=== PATIENT | male | born 1970 | race Caucasian/White ===

== ENCOUNTER 2017-11-29 08:02 | Outpatient (CLI) | payer OTHER ==
--- NOTE | 2017-11-29 12:37 | Ultrasound Report ---
AORTA SCREENIN11/29/2017 CLINICAL INDICATION: Family history of aneurysm. TECHNIQUE: Real-time scanning was performed with insurance follow up representative static images obtained. FINDINGS: The abdominal aorta is normal in caliber, measuring 2.7 cm proximally, 2.7 cm in the mid portion, and 1.9 cm distally. The iliacs are normal in caliber. No free fluid is present. IMPRESSION: NO EVIDENCE OF AN ABDOMINAL AORTIC ANEURYSM. TD: 11/29/2017 12:36
--- NOTE | 2017-11-30 15:24 | Ultrasound Report ---
CAROTID DUPLEX: 11/29/2017 CLINICAL INDICATION: Pulsatile tinnitus. TECHNIQUE: Real-time sonographic vascular imaging was performed by the editorial director through the carotid arteries utilizing both color-flow and Doppler spectral analysis. Multiple dermatology sales representative static images were saved for review. RIGHT Vessel PSV cm/sec EDV cm/sec ICA/CCA RSV Ratio Degree of Stenosis Plaque Estimate % RCCA Prox 95 -- -- RCCA Dist 91 20 -- RECA 96 -- -- RT BULB 105 20 1.15 ALESSANDRO Prox 71 24 0.78 ALESSANDRO Mid 62 24 0.68 ALESSANDRO Dist 77 15 0.85 RVA 46 -- -- RVA flow direction: Antegrade LEFT Vessel PSV cm/sec EDV cm/sec ICA/CCA RSV Ratio Degree of Stenosis Plaque Estimate % LCCA Prox 119 -- -- LCCA Dist 86 22 -- LECA 116 -- -- LFT BULB 55 10 1.15 LICA Prox 73 30 0.78 LICA Mid 73 29 0.68 LICA Dist 78 32 0.85 LVA 51 -- -- LVA flow direction: Antegrade Velocity criteria are extrapolated from diameter data as defined by the Society of Radiologists in Ultrasound Consensus Conference Radiology 2003; 229; 340-346. Degree of Stenosis % ICA PSV cm/sec ICA EDV cm/sec ICA/CCA PSV Ratio Plaque Estimate % Normal < 125 < 40 < 2.0 None <50 < 125 < 40 < 2.0 < 50 50-69 125-130 40-100 2.0-4.0 >/=50 >/=70 but less than near occlusion > 230 > 100 > 4.0 >/=50 Near occlusion High, low or undetectable Variable Variable Visible Total occlusion Undetectable Not applicable Not applicable No detectable lumen FINDINGS RIGHT: There is no plaquing in the right carotid bifurcation. No hemodynamically significant stenosis is seen. LEFT: There is no plaquing in the left carotid bifurcation. No hemodynamically significant stenosis is seen. The vertebral arteries demonstrate antegrade flow bilaterally. IMPRESSION: NORMAL CAROTID DUPLEX. TD: 11/29/2017 12:34 MTDD
== END 2017-11-29 08:03 | disposition home or self-care (01) ==
LOC: DI 08:02
PROVIDERS: ATTEND Registered Nurse
DX: Z13.6 Encounter for screening for cardiovascular disorders (principal); H93.A9 Pulsatile tinnitus, unspecified ear
CPT/HCPCS: 76706; 93880

== ENCOUNTER 2019-01-10 16:27 | Outpatient (CLI) | payer OTHER ==
--- NOTE | 2019-01-11 14:43 | MRI Report ---
Reason: PAIN IN LEFT ELBOW Procedure Date: 01/10/2019 Accession Number: [id number] / [id number] Procedure: MRI - Elbow LT W/O CPT Code: FULL RESULT: EXAM: LEFT ELBOW MRI WITHOUT CONTRAST EXAM DATE: 01/10/2019 05:12 PM. CLINICAL HISTORY: Left elbow pain. COMPARISON: None. TECHNIQUE: Multiplanar, multisequence T1-weighted and fluid-sensitive sequences of the elbow without contrast. Other: None. FINDINGS: Bones and articular cartilage: Marginal osteophytes at the distal end of the humerus, proximal end of the ulna, and proximal end of the radius. Tiny subcortical cysts and minimal subchondral marrow edema at the capitellum. 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 Grade III-IV chondromalacia at the capitellum. Grade II-III chondromalacia at the ulnohumeral joint. No acute fracture or bone lesions. Ligaments: The ulnar collateral, lateral ulnar collateral, radial collateral, and annular ligaments are intact. Tendons: The common flexor and extensor tendons are unremarkable. The distal biceps, brachialis, and triceps tendons are unremarkable. Musculature: There is an approximately 5.1 x 1.6 x 1.5 cm simple-appearing lipoma within the anteromedial aspect of the brachioradialis muscle. No muscle edema or atrophy. Other: The cubital tunnel and ulnar nerve are unremarkable. Small joint effusion. The subcutaneous tissues are unremarkable. IMPRESSION: 1. Elbow joint osteoarthritis. 2. No tendon or ligament tear. 3. A 5.1 x 1.6 x 1.5 cm lipoma within the anteromedial aspect of the brachioradialis muscle. RADIA
== END 2019-01-10 16:28 | disposition home or self-care (01) ==
LOC: DI 16:27
PROVIDERS: ATTEND Registered Nurse
DX: M19.022 Primary osteoarthritis, left elbow (principal); D17.9 Benign lipomatous neoplasm, unspecified

== ENCOUNTER 2021-08-02 20:53 | Inpatient (IN) | payer OTHER ==
[2021-08-02 21:12] LABS: BASOPHILS # (AUTO) 0.1 10^3/uL (0.0-0.1); BASOPHILS % (AUTO) 0.7 %; EOSINOPHILS # (AUTO) 0.3 10^3/uL (0.0-0.7); HCT - HEMATOCRIT 46.8 % (42.0-52.0); HGB - HEMOGLOBIN 16.6 g/dL (14.0-18.0); LYMPHOCYTES # (AUTO) 2.7 10^3/uL (1.5-3.5); MEAN CORPUSCULAR HEMOGLOBIN 30.2 pg (27.0-31.0); MEAN CORPUSCULAR HGB CONC 35.5 g/dL (32.0-36.0); MEAN CORPUSCULAR VOLUME 85.2 fL (80.0-94.0); MEAN PLATELET VOLUME 10.7 fL (7.4-11.4); MONOCYTES # (AUTO) 0.7 10^3/uL (0.0-1.0); MONOCYTES % (AUTO) 8.4 %; NEUTROPHILS # (AUTO) 4.7 10^3/uL (1.5-6.6); NEUTROPHILS % (AUTO) 55.7 %; PLT - PLATELET COUNT 245 10^3/uL (130-450); RED BLOOD COUNT 5.49 10^6/uL (4.70-6.10); RED CELL DISTRIBUTION WIDTH 12.9 % (12.0-15.0); WHITE BLOOD COUNT 8.4 x10^3/uL (4.8-10.8)
--- NOTE | 2021-08-02 21:21 | XRAY Report ---
PROCEDURE: Chest 1 View X-Ray INDICATIONS: Chest Pain TECHNIQUE: One view of the chest was acquired. COMPARISON: None FINDINGS: Surgical changes and devices: None. Lungs and pleura: No pleural effusions or pneumothorax. Lungs are clear. Mediastinum: Mediastinal contours appear normal. Heart size is normal. Bones and chest wall: No suspicious bony lesions. Overlying soft tissues appear unremarkable. IMPRESSION: No acute process. Reviewed by: Mundo Bear MD on 08/02/2021 9:19 PM [facility] Approved by: Mundo Bear MD on 08/02/2021 9:19 PM [facility] Station ID: [id number]
[2021-08-02 21:25] LABS: INR 1.1 (0.8-1.2); PT - PROTHROMBIN TIME 12.2 secs (9.9-12.6)
[2021-08-02 21:32] LABS: ALBUMIN 4.8 g/dL (3.2-5.5); ALBUMIN/GLOBULIN RATIO 1.5 (1.0-2.2); BILIRUBIN,TOTAL 0.9 mg/dL (0.2-1.0); CALCIUM 9.7 mg/dL (8.5-10.3); CREATININE 1.2 mg/dL (0.6-1.2); POTASSIUM 3.1 mmol/L (3.5-5.0); TOTAL PROTEIN 8.1 g/dL (6.7-8.2)
[2021-08-02] MEDS: diltiaZEM INJ 5 MG/ML VIAL IVP PRN ×3 (21:34→23:11)
[2021-08-02] MEDS ORDERED: MAGNESIUM SULFATE 2 GRAM 2 GM/50 ML BAG IV ONE (21:58)
[2021-08-02] MEDS: POTASSIUM CHLOR 10 MEQ/100 ML 10 MEQ/100 ML BAG IV SCH ×2 (22:13→23:00)
[2021-08-02] MEDS ORDERED: diltiaZEM INJ 125 MG in DEXTROSE 5% 100 ML IV STA (23:27)
[2021-08-02] MEDS ORDERED: diltiaZEM INJ 5 MG/ML VIAL ONE (23:42)
[2021-08-03] MEDS: POTASSIUM CHLOR 10 MEQ/100 ML 10 MEQ/100 ML BAG IV SCH ×2 (00:01→01:05)
[2021-08-03 01:23] LABS: B. PARAPERTUSSIS- RESP PCR PAN NOT DETECTED; B. PERTUSSIS- RESP PCR PANEL NOT DETECTED; C. PNEUMONIAE- RESP PCR PANEL NOT DETECTED; CORONAVIRUS 229E-RESP PCR NOT DETECTED; CORONAVIRUS HKU1-RESP PCR NOT DETECTED; CORONAVIRUS NL63-RESP PCR NOT DETECTED; CORONAVIRUS OC43-RESP PCR NOT DETECTED; HUMAN METAPNEUMOVIRUS NOT DETECTED; INFLUENZA A- RESP PCR PANEL NOT DETECTED; INFLUENZA B - RESP PCR PANEL NOT DETECTED; M. PNEUMONIAE- RESP PCR PANEL NOT DETECTED; PARAINFLUENZA VIRUS 1 NOT DETECTED; PARAINFLUENZA VIRUS 2 NOT DETECTED; PARAINFLUENZA VIRUS 3 NOT DETECTED; PARAINFLUENZA VIRUS 4 NOT DETECTED; RHINOVIRUS/ENTEROVIRUS NOT DETECTED; RSV- RESP PCR PANEL NOT DETECTED; SARS-CoV-2 -RESP PCR PANEL NOT DETECTED
[2021-08-03] MEDS ORDERED: SODIUM CHLORIDE FLUSH 0.9% 10 ML SYRINGE IVP PRN (01:42)
[2021-08-03] MEDS ORDERED: ACETAMINOPHEN 325 MG TABLET PO PRN (01:42)
[2021-08-03] MEDS ORDERED: ONDANSETRON 4 MG/2 ML VIAL IVP PRN (01:42)
--- NOTE | 2021-08-03 01:51 | HISTORY & PHYSICAL EXAMINATION ---
Chief Complaint - Chief Complaint Chief Complaint: Palpitations History of Present Illness - Admitted From Admitted From:: ED - History Obtained From History obtained from: ED provider and the patient - History of Present Illness HPI Comment/Other: This is a 60-year-old white male with a history of hypertension for which he takes amlodipine, losartan and HCTZ. He checked his vital signs several days ago and noticed that his heart rate was high for about 2 hours. Today he felt rapid palpitations and checked his heart rate which she found to be high and the apple watch told him he was in A. fib. He therefore presented to the ED. Heart rate was 140 in A. fib at presentation. He got 2 Cardizem IV pushes with minimal results and has been started on a Cardizem drip for rate control. Blood pressure still remains high at 110-130. He is being admitted to the ICU for new onset of A. fib with RVR. His younger brother of a burst aortic aneurysm at age 42. 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 He has needed 3 BP meds for BP control. When he was on Coreg, plus HCTZ and Losartan, he heard pulsations in his ears, which stopped when Coreg was discontinued. We discussed his code wishes and he wants to be a Full Code. History - Past Medical History Cardiovascular: reports: Hypertension, High cholesterol MRSA Hx?: No - Family & Social History Family History: Brother: (burst aortic aneurysm) Living arrangement: At home Living Situation: With spouse/s.o. Social History Notes: He is a non-smoker, he smoked cigars only during college. He drinks 1 beer about a month. No illicit drug use history. He lives with his . He has no children. - Substance History Use: Uses substance without health or social issues: NONE Meds/Allgy - Home Medications Home Medications: Ambulatory Orders Medication Instructions Recorded Confirmed Losartan [Cozaar] 100 mg PO DAILY 08/02/21 08/02/21 amLODIPine [Norvasc] 5 mg PO DAILY 08/02/21 08/02/21 hydroCHLOROthiazide 25 mg PO DAILY 08/02/21 08/02/21 [Hydrochlorothiazide] - Allergies Allergies/Adverse Reactions: Allergies Allergy/AdvReac Type Severity Reaction Status Date / Time No Known Drug Allergies Allergy Verified 08/03/21 03:21 Review of Systems - Cardiovascular Cariovascular: reports: Palpitations - All Other Systems All Other Systems: reports: Reviewed and negative Exam - Vital Signs Reviewed Vital Signs: Yes Vital Signs: Vital Signs x48h Temp Pulse Resp BP Pulse Ox 08/03/21 01:30 122 H 17 122/95 H 96 08/03/21 01:00 102 H 12 128/85 H 97 08/03/21 00:30 108 H 12 137/99 H 96 08/03/21 00:00 117 H 16 155/91 H 95 08/02/21 23:30 120 H 11 L 169/99 H 97 08/02/21 23:00 143 H 13 134/99 H 96 08/02/21 22:57 133 H 15 132/99 H 96 08/02/21 22:43 119 H 12 128/83 H 95 08/02/21 22:30 138 H 15 126/99 H 95 08/02/21 22:01 144 H 14 140/100 H 97 08/02/21 21:54 124 H 11 L 126/88 H 97 08/02/21 21:46 110 H 12 152/135 H 97 08/02/21 21:38 121 H 14 139/85 H 97 08/02/21 21:34 144 H 164 H 179/149 H 96 08/02/21 21:00 36.9 C 145 H 18 168/111 H 99 - Physical Exam General Appearance: positive: No acute distress, Alert Eyes Bilateral: positive: Normal inspection, EOMI ENT: positive: ENT inspection nml, No signs of dehydration Neck: positive: Nml inspection, Thyroid nml, No JVD Respiratory: positive: Breath sounds nml Cardiovascular: positive: Regular rate & rhythm, No murmur Abdomen: positive: Non-tender, Nml bowel sounds, No distention Skin: positive: Warm, Dry Extremities: positive: Non-tender, No pedal edema Neurologic/Psychiatric: positive: Oriented x3, Sensation nml Conclusion/Plan - Problem List (1) Atrial fibrillation with RVR Conclusion/Plan: This is new onset A. fib for this gentleman. His TSH is normal ruling out hyperthyroidism as the cause. First troponin was 4.0, will cycle one more to rule out ACS as the cause of A. fib. His CXR is WNL. We will continue with the diltiazem drip to achieve rate control, then transiti on to oral diltiazem or beta-soco. Will not give his home amlodipine dose while we are using diltiazem. Will obtain an Echo to evaluate for structural heart disease. At this time his CHADS score is zero, thus will start one baby aspirin daily for his stroke prophylaxis and A. fib. (2) HTN (hypertension) Conclusion/Plan: Will hold the HCTZ and amlodipine while we are hydrating him plus using diltiazem for rate control. Continue with Losartan, at a lower dose, while on Diltiazem, and holding parameters will be given. (3) Hypokalemia Conclusion/Plan: This is likely related to HCTZ use. Will give potassium replacement. Follow BMP daily - Lab Results Fish Bones: 08/02/21 21:02 08/02/21 21:02 - Diagnostic Imaging Results Diagnostic Imaging Results: positive: Final report reviewed - Other Other Results/Comments: Attestation: The patient is expected to be discharged or transferred to another facility within 96 hours: Yes
[2021-08-03] MEDS ORDERED: POTASSIUM CHLORIDE 20 MEQ TABLET PO STA (01:52)
[2021-08-03] MEDS ORDERED: SODIUM CHLORIDE 0.9% 1,000 ML IV SCH (02:00)
[2021-08-03] MEDS ORDERED: NS W/20 MEQ KCL 1,000 ML IV SCH (02:00)
[2021-08-03] MEDS ORDERED: diltiaZEM INJ 125 MG in DEXTROSE 5% 100 ML IV SCH (02:00)
--- NOTE | 2021-08-03 05:08 | ED Physician Documentation ---
History of Present Illness - Stated complaint Stated Complaint: HIGH HR - Chief complaint Chief Complaint: Cardiac - Additonal information Additional information: Patient is a 50-year-old male presenting to the emergency department with rapid heartbeat. Past medical significant for hypertension. Patient reports earlier today he was checking his blood pressure and noted that he had an irregular pulse. He subsequently checked the electrical activity of his heart via his apple watch and was told he is in A. fib. He is uncertain exactly when this started however he does report that last Monday he did have what he felt like was a similar episode that lasted approximately 2 hours. He denies any previous history of A. fib. Denies any fever, chills, chest pain, shortness of breath, abdominal pain, nausea, vomiting, diarrhea, constipation. Review of Systems Ten Systems: 10 systems reviewed and negative Constitutional: denies: Fever Eyes: denies: Loss of vision Ears: denies: Loss of hearing Nose: denies: Rhinorrhea / runny nose Throat: denies: Dental pain / toothache Cardiac: denies: Chest pain / pressure, Palpitations Respiratory: denies: Dyspnea GI: denies: Abdominal Pain PD PAST MEDICAL HISTORY - Past Medical History Past Medical History: Yes Cardiovascular: Hypertension, High cholesterol Respiratory: None Neuro: None Endocrine/Autoimmune: None GI: None : None Psych: None Musculoskeletal: None Derm: None - Past Surgical History Past Surgical History: Yes - Present Medications Home Medications: Ambulatory Orders Medication Instructions Recorded Confirmed Losartan [Cozaar] 100 mg PO DAILY 08/02/21 08/02/21 amLODIPine [Norvasc] 5 mg PO DAILY 08/02/21 08/02/21 hydroCHLOROthiazide 25 mg PO DAILY 08/02/21 08/02/21 [Hydrochlorothiazide] - Allergies Allergies/Adverse Reactions: Allergies Allergy/AdvReac Type Severity Reaction Status Date / Time No Known Drug Allergies Allergy Verified 08/03/21 03:21 - Social History Does the pt smoke?: No Smoking Status: Never smoker Does the pt drink ETOH?: Yes Does the pt have substance abuse?: No - Immunizations Immunizations are current?: Yes PD ED PE NORMAL - Vitals Vital signs reviewed: Yes - General General: Alert and oriented X 3, No acute distress - HEENT HEENT: Atraumatic - Neck Neck: Supple, no meningeal sign - Cardiac Cardiac: Other (Tachycardic, irregularly irregular pulse) - Respiratory Respiratory: No respiratory distress, Clear bilaterally - Abdomen Abdomen: Normal bowel sounds, Non tender - Male Male : Deferred - Derm Derm: Normal color - Extremities Extremities: No deformity - Neuro Neuro: Alert and oriented X 3, No motor deficit, No sensory deficit Results - Vitals Vitals: Vital Signs - 24 hr 08/02/21 08/02/21 08/02/21 21:00 21:34 21:38 Temperature 36.9 C Heart Rate 145 H 144 H 121 H Respiratory 18 164 H 14 Rate Blood Pressure 168/111 H 179/149 H 139/85 H O2 Saturation 99 96 97 08/02/21 08/02/21 08/02/21 21:46 21:54 22:01 Temperature Heart Rate 110 H 124 H 144 H Respiratory 12 11 L 14 Rate Blood Pressure 152/135 H 126/88 H 140/100 H O2 Saturation 97 97 97 08/02/21 08/02/21 08/02/21 22:30 22:43 22:57 Temperature Heart Rate 138 H 119 H 133 H Respiratory 15 12 15 Rate Blood Pressure 126/99 H 128/83 H 132/99 H O2 Saturation 95 95 96 08/02/21 08/02/21 08/03/21 23:00 23:30 00:00 Temperature Heart Rate 143 H 120 H 117 H Respiratory 13 11 L 16 Rate Blood Pressure 134/99 H 169/99 H 155/91 H O2 Saturation 96 97 95 08/03/21 08/03/21 08/03/21 00:30 01:00 01:30 Temperature Heart Rate 108 H 102 H 122 H Respiratory 12 12 17 Rate Blood Pressure 137/99 H 128/85 H 122/95 H O2 Saturation 96 97 96 Oxygen O2 Source Room air - EKG (time done) 2058 Rate: Tachy (137) Rhythm: Atrial fibrillation [place]: Normal Intervals: Normal RI QRS: Normal Ischemia: Normal ST segments Computer interpretation: Agree with computer - Labs Labs: Laboratory Tests 08/02/21 08/02/21 08/02/21 21:02 21:02 21:02 WBC 8.4 RBC 5.49 Hgb 16.6 Hct 46.8 MCV 85.2 MCH 30.2 MCHC 35.5 RDW 12.9 Plt Count 245 MPV 10.7 Neut # (Auto) 4.7 Lymph # (Auto) 2.7 Bond # (Auto) 0.7 Eos # (Auto) 0.3 Baso # (Auto) 0.1 Absolute Nucleated RBC 0.00 Nucleated RBC % 0.0 PT INR Sodium 140 Potassium 3.1 L Chloride 100 L Carbon Dioxide 29 Anion Gap 11.0 BUN 20 Creatinine 1.2 Estimated GFR (MDRD) 64 L Glucose 96 Calcium 9.7 Total Bilirubin 0.9 AST 25 ALT 33 Alkaline Phosphatase 57 Troponin I High Sens 4.0 B-Natriuretic Peptide Total Protein 8.1 Albumin 4.8 Globulin 3.3 Albumin/Globulin Ratio 1.5 Lipase 47 TSH Nasal Adenovirus (PCR) Nasal B. parapertussis DNA (PCR) Nasal Coronavir 229E PCR Nasal Coronavir HKU1 PCR Nasal Coronavir NL63 PCR Nasal Coronavir OC43 PCR Nasal Enterovir/Rhinovir PCR Nasal Influenza B PCR Nasal Influenza A PCR Nasal Parainfluen 1 PCR Nasal Parainfluen 2 PCR Nasal Parainfluen 3 PCR Nasal Parainfluen 4 PCR Nasal RSV (PCR) Nasal B.pertussis DNA PCR Nasal C.pneumoniae (PCR) Loyd Human Metapneumo PCR Nasal M.pneumoniae (PCR) Nasal SARS-CoV-2 (PCR) 08/02/21 08/02/21 08/02/21 21:02 21:02 21:15 WBC RBC Hgb Hct MCV MCH MCHC RDW Plt Count MPV Neut # (Auto) Lymph # (Auto) Bond # (Auto) Eos # (Auto) Baso # (Auto) Absolute Nucleated RBC Nucleated RBC % PT 12.2 INR 1.1 Sodium Potassium Chloride Carbon Dioxide Anion Gap BUN Creatinine Estimated GFR (MDRD) Glucose Calcium Total Bilirubin AST ALT Alkaline Phosphatase Troponin I High Sens B-Natriuretic Peptide 32 Total Protein Albumin Globulin Albumin/Globulin Ratio Lipase TSH 3.95 Nasal Adenovirus (PCR) Nasal B. parapertussis DNA (PCR) Nasal Coronavir 229E PCR Nasal Coronavir HKU1 PCR Nasal Coronavir NL63 PCR Nasal Coronavir OC43 PCR Nasal Enterovir/Rhinovir PCR Nasal Influenza B PCR Nasal Influenza A PCR Nasal Parainfluen 1 PCR Nasal Parainfluen 2 PCR Nasal Parainfluen 3 PCR Nasal Parainfluen 4 PCR Nasal RSV (PCR) Nasal B.pertussis DNA PCR Nasal C.pneumoniae (PCR) Loyd Human Metapneumo PCR Nasal M.pneumoniae (PCR) Nasal SARS-CoV-2 (PCR) 08/02/21 23:44 WBC RBC Hgb Hct MCV MCH MCHC RDW Plt Count MPV Neut # (Auto) Lymph # (Auto) Bond # (Auto) Eos # (Auto) Baso # (Auto) Absolute Nucleated RBC Nucleated RBC % PT INR Sodium Potassium Chloride Carbon Dioxide Anion Gap BUN Creatinine Estimated GFR (MDRD) Glucose Calcium Total Bilirubin AST ALT Alkaline Phosphatase Troponin I High Sens B-Natriuretic Peptide Total Protein Albumin Globulin Albumin/Globulin Ratio Lipase TSH Nasal Adenovirus (PCR) NOT DETECTED Nasal B. parapertussis DNA (PCR) NOT DETECTED Nasal Coronavir 229E PCR NOT DETECTED Nasal Coronavir HKU1 PCR NOT DETECTED Nasal Coronavir NL63 PCR NOT DETECTED Nasal Coronavir OC43 PCR NOT DETECTED Nasal Enterovir/Rhinovir PCR NOT DETECTED Nasal Influenza B PCR NOT DETECTED Nasal Influenza A PCR NOT DETECTED Nasal Parainfluen 1 PCR NOT DETECTED Nasal Parainfluen 2 PCR NOT DETECTED Nasal Parainfluen 3 PCR NOT DETECTED Nasal Parainfluen 4 PCR NOT DETECTED Nasal RSV (PCR) NOT DETECTED Nasal B.pertussis DNA PCR NOT DETECTED Nasal C.pneumoniae (PCR) NOT DETECTED Loyd Human Metapneumo PCR NOT DETECTED Nasal M.pneumoniae (PCR) NOT DETECTED Nasal SARS-CoV-2 (PCR) NOT DETECTED PD MEDICAL DECISION MAKING - ED course Complexity details: re-evaluated patient ED course: Patient is 50-year-old male presenting with new onset A. fib with RVR. Past medical significant for hypertension and dyslipidemia. Arrived in atrial fibrillation with rapid ventricular response with initial heart rate approximately 1 37-1 50. Otherwise hemodynamically stable and mentating well. Comprehensive labs obtained demonstrated a mild hypokalemia and I did elect to replace potassium as well as give magnesium empirically. Patient was given multiple push doses of Cardizem in the emergency department without successful rate control or work cardioversion. I did initiate a Cardizem drip in the emergency department which did successfully slow the patient's rate however did not elicit spontaneous conversion back to sinus rhythm. His case was discussed with the hospitalist service. At this time he will be hospitalized for further evaluation and treatment. - Critical Care Time(min): 31 Time Includes: Direct patient care, Reassess patient, Medical consult Data interpretation: Labs, CXR Departure - Departure Disposition: [facility] DC/Xfer Clinical Impression: Atrial fibrillation with RVR Condition: Fair Discharge Date/Time: 08/03/21 02:17
[2021-08-03 05:14] LABS: BASOPHILS % (AUTO) 0.5 %; EOSINOPHILS # (AUTO) 0.2 10^3/uL (0.0-0.7); EOSINOPHILS % (AUTO) 2.9 %; HCT - HEMATOCRIT 44.9 % (42.0-52.0); HGB - HEMOGLOBIN 15.7 g/dL (14.0-18.0); LYMPHOCYTES # (AUTO) 1.9 10^3/uL (1.5-3.5); LYMPHOCYTES % (AUTO) 30.2 %; MEAN CORPUSCULAR HEMOGLOBIN 29.6 pg (27.0-31.0); MEAN CORPUSCULAR VOLUME 84.7 fL (80.0-94.0); MONOCYTES # (AUTO) 0.5 10^3/uL (0.0-1.0); MONOCYTES % (AUTO) 7.6 %; NEUTROPHILS # (AUTO) 3.6 10^3/uL (1.5-6.6); NEUTROPHILS % (AUTO) 58.5 %; PLT - PLATELET COUNT 228 10^3/uL (130-450); RED CELL DISTRIBUTION WIDTH 12.9 % (12.0-15.0); WHITE BLOOD COUNT 6.2 x10^3/uL (4.8-10.8)
[2021-08-03 05:26] LABS: CALCIUM 8.6 mg/dL (8.5-10.3); MAGNESIUM 2.4 mg/dL (1.7-2.8); PHOSPHORUS 3.7 mg/dL (2.5-4.6); POTASSIUM 3.2 mmol/L (3.5-5.0)
[2021-08-03] MEDS: POTASSIUM CHLORIDE 20 MEQ TABLET PO SCH ×2 (06:27→08:58)
[2021-08-03] MEDS ORDERED: PANTOPRAZOLE 40 MG TABLET PO SCH (07:00)
[2021-08-03] MEDS ORDERED: LOSARTAN 50 MG TABLET PO SCH (09:00)
[2021-08-03] MEDS ORDERED: diltiaZEM CD 120 MG CAPSULE PO SCH (09:00)
[2021-08-03] MEDS ORDERED: ASPIRIN EC 81 MG TABLET PO SCH (09:00)
[2021-08-03] MEDS ORDERED: ENOXAPARIN 40 MG/0.4 ML SYRINGE SUBQ SCH (09:00)
[2021-08-03] MEDS ORDERED: SODIUM CHLORIDE FLUSH 0.9% 10 ML SYRINGE IVP SCH (09:00)
--- NOTE | 2021-08-03 09:26 | PHARMACY PROGRESS NOTE ---
- Best Possible Medication History Admit Date and Time: 08/03/21 0142 Processed by: Nursing Medication History completed: Yes Patient Interview: Completed (COMPLETED BY NURSING) As the person ultimately responsible for medication therapy, providers are able to order a medication from an existing home medication list in [facility] via the "Reconcile Routine" prior to Confirmation of that medication by technical support professional. Such practice is discouraged except when the physician, in their clinical judgment, deems that a medical need exists for a medication without regard to previous use.
[2021-08-03 11:10] VITALS: BP 134/80
--- NOTE | 2021-08-03 11:13 | Discharge Plan ---
Discharge Plan Problem Reviewed?: Yes Disposition: Home, Self Care Condition: Stable Prescriptions: diltiaZEM CD [Cardizem Cd] 120 mg PO DAILY #30 cap Aspirin EC [Ecotrin] 81 mg PO DAILY #30 tablet Potassium Chloride 10 meq PO DAILY #30 tab Diet: Regular Activity Restrictions: Activity as Tolerated Instruction Topics: Atrial Fibrillation Dc Health Concerns: You were admitted to the hospital because of an elevated heart rate due to atrial fibrillation. We treated you with an IV medication called diltiazem with improvement in your heart rate. An echocardiogram showed that your heart function was normal and your valves are functioning well. Plan of Treatment: Please begin to take the diltiazem 120 mg daily. This is to help control your heart rate. Please also begin to take aspirin 81 mg daily as this can decrease your risk of stroke associated with atrial fibrillation. You may also continue to take losartan for your high blood pressure. Please stop taking amlodipine as the diltiazem is similar to this but also helps in controlling your heart rate. Please also stop taking hydrochlorothiazide for the time being as I am c oncerned your blood pressure may become too low. Please check your blood pressure on a regular basis at home and follow-up with your primary care physician. If your blood pressure is persistently greater than 140 then you may need to resume the hydrochlorothiazide in the future. Please also take potassium supplementation on a daily basis as your potassium was noted to be a little low likely due to the hydrochlorothiazide. I have sent a prescription for potassium to take daily. Care Goals: The goal is to control your heart rate. Assessment: The patient expressed understanding of the treatment plan. Additional Instructions or Follow Up instructions: Please follow-up with your primary care physician in 1 to 2 weeks. You can discuss with them regarding a referral to cardiology. No Smoking: If you smoke, Please STOP! Call for help. Follow-up with: Liat Tillman ARNP [Primary Care Provider] -
--- NOTE | 2021-08-03 11:39 | DISCHARGE SUMMARY ---
"Discharge Summary Admit Date: 08/03/21 Discharge Date: 08/03/21 Discharging Provider: Fredis Song Primary Care Provider: Liat Tillman Code Status: Attempt Resuscitation Condition at Discharge: Stable Discharge Disposition: 01 Home, Self Care - DIAGNOSES Admission Diagnoses: Atrial fibrillation with RVR Hypertension Hypokalemia Discharge Diagnoses with Status of Each Condition: Paroxysmal atrial fibrillation with RVR - resolved. Hypertension - stable. Hypokalemia - stable. - HPI History of Present Illness: H&P per Dr. Arthur: This is a 50-year-old white male with a history of hypertension for which he takes amlodipine, losartan and HCTZ. He checked his vital signs several days ago and noticed that his heart rate was high for about 2 hours. Today he felt rapid palpitations and checked his heart rate which she found to be high and the apple watch told him he was in A. fib. He therefore presented to the ED. Heart rate was 140 in A. fib at presentation. He got 2 Cardizem IV pushes with minimal results and has been started on a Cardizem drip for rate control. Blood pressure still remains high at 110-130. He is being admitted to the ICU for new onset of A. fib with RVR. His younger brother of a burst aortic aneurysm at age 42. 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 He has needed 3 BP meds for BP control. When he was on Coreg, plus HCTZ and Losartan, he heard pulsations in his ears, which stopped when Coreg was discontinued. We discussed his code wishes and he wants to be a Full Code. - CONSULTS | PROCEDURES Procedures: Echocardiogram revealed an ejection fraction of 60%. Left atrium is mildly dilated. Normal valve structure and function. Normal right heart, normal pulmonary pressures, RVSP 34 mmHg. - HOSPITAL COURSE Hospital Course: He was admitted to the ICU for atrial fibrillation with rapid ventricular response. He was started on a diltiazem drip and he converted to sinus rhythm overnight. He was switched to p.o. Cardizem. An echocardiogram was obtained which showed a preserved ejection fraction without any significant valvular disease. He was started on aspirin as well for his atrial fibrillation given his [id number] score was 1. He was asked to continue losartan and begin to take diltiazem as well as aspirin at home. He was asked to discontinue the hydrochlorothiazide to prevent hypotension until he follows up with his primary care physician. He was also asked to discontinue amlodipine given we are adding diltiazem. He will be discussing with his primary care physician regarding referral to cardiology. - ALLERGIES Allergies/Adverse Reactions: Allergies Allergy/AdvReac Type Severity Reaction Status Date / Time No Known Drug Allergies Allergy Verified 08/03/21 03:21 - MEDICATIONS Home Medications: Ambulatory Orders Medication Instructions Recorded Confirmed Losartan [Cozaar] 100 mg PO DAILY 08/02/21 08/02/21 Aspirin EC [Ecotrin] 81 mg PO DAILY #30 tablet 08/03/21 Potassium Chloride 10 meq PO DAILY #30 tab 08/03/21 diltiaZEM CD [Cardizem Cd] 120 mg PO DAILY #30 cap 08/03/21 - PHYSICAL EXAM AT DISCHARGE General Appearance: positive: No acute distress, Alert Eyes Bilateral: positive: Normal inspection, Conjunctivae nml ENT: positive: ENT inspection nml Neck: positive: Nml inspection Respiratory: positive: No respiratory distress. negative: Wheezes, Rales Cardiovascular: positive: Regular rate & rhythm, No murmur. negative: Tachycardia Abdomen: positive: Non-tender, No distention. negative: Tenderness Skin: positive: Warm, Dry Extremities: positive: No pedal edema Neurologic/Psychiatric: positive: Motor nml. negative: Disoriented to person, Disoriented to place, Disoriented to time Physical Exam Other/Comments: Vital Signs - 24 hr 08/02/21 08/02/21 08/02/21 21:00 21:34 21:38 Temperature 36.9 C Heart Rate 145 H 144 H 121 H Heart Rate [ Monitoring electrodes] Respiratory 18 164 H 14 Rate Blood Pressure 168/111 H 179/149 H 139/85 H Blood Pressure [Right Brachial artery] O2 Saturation 99 96 97 08/02/21 08/02/21 08/02/21 21:46 21:54 22:01 Temperature Heart Rate 110 H 124 H 144 H Heart Rate [ Monitoring electrodes] Respiratory 12 11 L 14 Rate Blood Pressure 152/135 H 126/88 H 140/100 H Blood Pressure [Right Brachial artery] O2 Saturation 97 97 97 08/02/21 08/02/21 08/02/21 22:30 22:43 22:57 Temperature Heart Rate 138 H 119 H 133 H Heart Rate [ Monitoring electrodes] Respiratory 15 12 15 Rate Blood Pressure 126/99 H 128/83 H 132/99 H Blood Pressure [Right Brachial artery] O2 Saturation 95 95 96 08/02/21 08/02/21 08/03/21 23:00 23:30 00:00 Temperature Heart Rate 143 H 120 H 117 H Heart Rate [ Monitoring electrodes] Respiratory 13 11 L 16 Rate Blood Pressure 134/99 H 169/99 H 155/91 H Blood Pressure [Right Brachial artery] O2 Saturation 96 97 95 08/03/21 08/03/21 08/03/21 00:30 01:00 01:30 Temperature Heart Rate 108 H 102 H 122 H Heart Rate [ Monitoring electrodes] Respiratory 12 12 17 Rate Blood Pressure 137/99 H 128/85 H 122/95 H Blood Pressure [Right Brachial artery] O2 Saturation 96 97 96 08/03/21 08/03/21 08/03/21 02:00 02:30 02:31 Temperature 37.0 C Heart Rate 106 H 141 H 130 H Heart Rate [ 115 H Monitoring electrodes] Respiratory 13 19 19 Rate Blood Pressure 163/98 H 136/98 H Blood Pressure 136/98 H [Right Brachial artery] O2 Saturation 97 96 08/03/21 08/03/21 08/03/21 02:35 02:40 02:45 Temperature Heart Rate 94 120 H 78 Heart Rate [ Monitoring electrodes] Respiratory 19 22 17 Rate Blood Pressure Blood Pressure [Right Brachial artery] O2 Saturation 08/03/21 08/03/21 08/03/21 02:46 02:47 02:50 Temperature Heart Rate 86 114 H 91 Heart Rate [ Monitoring electrodes] Respiratory 22 23 14 Rate Blood Pressure 161/92 H Blood Pressure [Right Brachial artery] O2 Saturation 08/03/21 08/03/21 08/03/21 02:55 03:00 03:01 Temperature Heart Rate 88 99 86 Heart Rate [ 100 Monitoring electrodes] Respiratory 13 18 16 Rate Blood Pressure 112/84 H Blood Pressure 112/84 H [Right Brachial artery] O2 Saturation 96 08/03/21 08/03/21 08/03/21 03:05 03:10 03:15 Temperature Heart Rate 97 75 85 Heart Rate [ Monitoring electrodes] Respiratory 12 16 11 L Rate Blood Pressure Blood Pressure [Right Brachial artery] O2 Saturation 08/03/21 08/03/21 08/03/21 03:16 03:20 03:22 Temperature Heart Rate 119 H 98 88 Heart Rate [ Monitoring electrodes] Respiratory 25 H 15 13 Rate Blood Pressure 107/82 H Blood Pressure [Right Brachial artery] O2 Saturation 08/03/21 08/03/21 08/03/21 03:23 03:24 03:25 Temperature Heart Rate 95 80 97 Heart Rate [ Monitoring electrodes] Respiratory 17 16 14 Rate Blood Pressure 122/89 H 135/89 H Blood Pressure [Right Brachial artery] O2 Saturation 08/03/21 08/03/21 08/03/21 03:26 03:30 03:31 Temperature Heart Rate 92 92 89 Heart Rate [ Monitoring electrodes] Respiratory 15 11 L 15 Rate Blood Pressure 137/98 H Blood Pressure [Right Brachial artery] O2 Saturation 08/03/21 08/03/21 08/03/21 03:35 03:40 03:45 Temperature Heart Rate 77 84 76 Heart Rate [ Monitoring electrodes] Respiratory 14 13 12 Rate Blood Pressure Blood Pressure [Right Brachial artery] O2 Saturation 08/03/21 08/03/21 08/03/21 03:46 03:50 03:55 Temperature Heart Rate 78 81 91 Heart Rate [ Monitoring electrodes] Respiratory 13 25 H 15 Rate Blood Pressure 118/93 H Blood Pressure [Right Brachial artery] O2 Saturation 08/03/21 08/03/21 08/03/21 04:00 04:01 04:05 Temperature Heart Rate 91 72 104 H Heart Rate [ Monitoring electrodes] Respiratory 14 15 13 Rate Blood Pressure 123/78 Blood Pressure [Right Brachial artery] O2 Saturation 08/03/21 08/03/21 08/03/21 04:10 04:15 04:20 Temperature Heart Rate 78 91 90 Heart Rate [ Monitoring electrodes] Respiratory 15 14 16 Rate Blood Pressure Blood Pressure [Right Brachial artery] O2 Saturation 08/03/21 08/03/21 08/03/21 04:25 04:30 04:35 Temperature Heart Rate 99 75 89 Heart Rate [ Monitoring electrodes] Respiratory 19 14 20 Rate Blood Pressure Blood Pressure [Right Brachial artery] O2 Saturation 08/03/21 08/03/21 08/03/21 04:40 04:45 04:50 Temperature Heart Rate 78 105 H Heart Rate [ Monitoring electrodes] Respiratory 38 H 14 15 Rate Blood Pressure Blood Pressure [Right Brachial artery] O2 Saturation 08/03/21 08/03/21 08/03/21 04:55 05:00 05:05 Temperature Heart Rate 85 87 74 Heart Rate [ Monitoring electrodes] Respiratory 21 14 13 Rate Blood Pressure Blood Pressure [Right Brachial artery] O2 Saturation 08/03/21 08/03/21 08/03/21 05:10 05:11 05:12 Temperature Heart Rate 51 L 59 L 56 L Heart Rate [ Monitoring electrodes] Respiratory 12 18 17 Rate Blood Pressure 122/85 H Blood Pressure [Right Brachial artery] O2 Saturation 08/03/21 08/03/21 08/03/21 05:14 05:15 05:16 Temperature Heart Rate 53 L 53 L 52 L Heart Rate [ 54 L Monitoring electrodes] Respiratory 13 13 12 Rate Blood Pressure 116/87 H Blood Pressure 116/87 H [Right Brachial artery] O2 Saturation 95 08/03/21 08/03/21 08/03/21 07:00 07:45 07:50 Temperature Heart Rate 48 L 49 L Heart Rate [ 50 L Monitoring electrodes] Respiratory 12 13 12 Rate Blood Pressure Blood Pressure 105/80 [Right Brachial artery] O2 Saturation 96 08/03/21 08/03/21 08/03/21 07:55 07:59 08:00 Temperature Heart Rate 52 L 48 L 53 L Heart Rate [ Monitoring electrodes] Respiratory 14 13 13 Rate Blood Pressure 120/82 H Blood Pressure [Right Brachial artery] O2 Saturation 08/03/21 08/03/21 08/03/21 08:01 08:05 08:10 Temperature Heart Rate 52 L 52 L 56 L Heart Rate [ Monitoring electrodes] Respiratory 14 13 16 Rate Blood Pressure Blood Pressure [Right Brachial artery] O2 Saturation 08/03/21 08/03/21 08/03/21 08:15 08:20 08:25 Temperature Heart Rate 52 L 60 69 Heart Rate [ Monitoring electrodes] Respiratory 13 17 17 Rate Blood Pressure Blood Pressure [Right Brachial artery] O2 Saturation 08/03/21 08/03/21 08/03/21 08:30 08:35 08:40 Temperature Heart Rate 73 65 66 Heart Rate [ Monitoring electrodes] Respiratory 18 20 14 Rate Blood Pressure Blood Pressure [Right Brachial artery] O2 Saturation 08/03/21 08/03/21 08/03/21 08:45 08:50 08:55 Temperature Heart Rate 72 67 64 Heart Rate [ Monitoring electrodes] Respiratory 23 20 14 Rate Blood Pressure Blood Pressure [Right Brachial artery] O2 Saturation 08/03/21 08/03/21 08/03/21 08:56 08:59 09:00 Temperature Heart Rate 64 61 57 L Heart Rate [ 66 Monitoring electrodes] Respiratory 14 20 14 Rate Blood Pressure 138/90 H 128/90 H Blood Pressure 128/90 H [Right Brachial artery] O2 Saturation 96 08/03/21 08/03/21 08/03/21 09:01 09:05 09:11 Temperature Heart Rate 62 66 75 Heart Rate [ Monitoring electrodes] Respiratory 11 L 13 20 Rate Blood Pressure Blood Pressure [Right Brachial artery] O2 Saturation 08/03/21 08/03/21 08/03/21 09:15 09:20 09:25 Temperature Heart Rate 60 63 58 L Heart Rate [ Monitoring electrodes] Respiratory 19 15 14 Rate Blood Pressure Blood Pressure [Right Brachial artery] O2 Saturation 08/03/21 08/03/21 08/03/21 09:30 09:35 09:40 Temperature Heart Rate 59 L 60 59 L Heart Rate [ Monitoring electrodes] Respiratory 13 14 14 Rate Blood Pressure Blood Pressure [Right Brachial artery] O2 Saturation 08/03/21 08/03/21 08/03/21 09:45 09:50 09:55 Temperature Heart Rate 58 L 54 L 56 L Heart Rate [ Monitoring electrodes] Respiratory 12 14 11 L Rate Blood Pressure Blood Pressure [Right Brachial artery] O2 Saturation 08/03/21 08/03/21 08/03/21 10:00 10:01 10:05 Temperature Heart Rate 54 L 67 57 L Heart Rate [ Monitoring electrodes] Respiratory 13 19 14 Rate Blood Pressure 105/76 Blood Pressure [Right Brachial artery] O2 Saturation 08/03/21 08/03/21 08/03/21 10:10 10:15 10:20 Temperature Heart Rate 59 L 59 L 60 Heart Rate [ Monitoring electrodes] Respiratory 13 13 13 Rate Blood Pressure Blood Pressure [Right Brachial artery] O2 Saturation 08/03/21 08/03/21 08/03/21 10:25 10:30 10:35 Temperature Heart Rate 59 L 58 L 59 L Heart Rate [ Monitoring electrodes] Respiratory 13 13 13 Rate Blood Pressure Blood Pressure [Right Brachial artery] O2 Saturation 08/03/21 08/03/21 08/03/21 10:40 10:45 10:50 Temperature Heart Rate 61 59 L 60 Heart Rate [ Monitoring electrodes] Respiratory 15 13 28 H Rate Blood Pressure Blood Pressure [Right Brachial artery] O2 Saturation 08/03/21 08/03/2108/03/21 10:55 11:00 11:01 Temperature Heart Rate 71 69 67 Heart Rate [ 62 Monitoring electrodes] Respiratory 19 18 14 Rate Blood Pressure 134/80 H Blood Pressure 134/80 H [Right Brachial artery] O2 Saturation 98 08/03/21 08/03/21 08/03/21 11:05 11:10 11:15 Temperature Heart Rate 56 L 75 68 Heart Rate [ Monitoring electrodes] Respiratory 21 22 15 Rate Blood Pressure Blood Pressure [Right Brachial artery] O2 Saturation Oxygen O2 Source Room air - LABS Result Diagrams: 08/03/21 04:26 08/03/21 04:26 - FOLLOW UP Follow Up: He was asked to hold hydrochlorothiazide until he follows up with his primary care physician. It was encouraged that he follow-up with him in 1 to 2 weeks and to discuss a referral to cardiology. - TIME SPENT Time Spent in Discharge (Minutes): 32"
== END 2021-08-03 12:39 | disposition home or self-care (01) | DRG 310 ==
LOC: ED 20:53 → ICU 08-03 01:42
PROVIDERS: ADMIT Internal Medicine; ATTEND Internal Medicine
DX: I48.91 Unspecified atrial fibrillation (principal); I10 Essential (primary) hypertension; E78.00 Pure hypercholesterolemia, unspecified; E87.6 Hypokalemia; Z20.822 Contact with and (suspected) exposure to COVID-19; Z79.899 Other long term (current) drug therapy; Z82.49 Family history of ischemic heart disease and other diseases of the circulatory system; Z87.891 Personal history of nicotine dependence
CPT/HCPCS: 0202U; 36415; 71045; 80048; 80053; 83690; 83735; 83880; 84100; 84443; 84484; 85025; 85610; 87150; 93005; 93306; 96365; 96375; 96376; 99285; 99291; A9270; J1650

== ENCOUNTER 2021-08-16 03:10 | Outpatient (CLI) | payer OTHER | END 2021-08-16 03:11 | disposition EMS.NT | LOC: EMS 03:10 | DX: R07.89 Other chest pain (principal); R20.8 Other disturbances of skin sensation ==

== ENCOUNTER 2021-08-22 19:23 | Outpatient (CLI) | payer OTHER | END 2021-08-22 19:24 | disposition critical access hospital (66) | LOC: EMS 19:23 | DX: F41.9 Anxiety disorder, unspecified (principal); I10 Essential (primary) hypertension | CPT/HCPCS: A0425; A0429 ==

== ENCOUNTER 2021-08-22 19:56 | Emergency (ER) | payer OTHER ==
--- NOTE | 2021-08-22 20:38 | ED Physician Documentation ---
PD HPI CHEST PAIN - Stated complaint Stated Complaint: HIGH BLOOD PRESSURE, ANXIETY - Chief complaint Chief Complaint: Cardiac - History obtained from History obtained from: Patient, EMS - History of Present Illness Timing - onset: Today Timing - onset during: Rest Timing - details: Gradual onset Pain level max: 1 Pain level now: 1 Quality: Other (warm feeling) Location: Left chest Radiation: No: Jaw, Neck, Back, Abdominal, Left upper extremity, Right upper extremity Improved by: Nothing Worsened by: Other (nothing) Associated symptoms: No: Shortness of air, Diaphoresis, Nausea, Vomiting, Feeling faint / dizzy, General Weakness, Palpitations, Cough - Additional information Additional information: Patient is a 50-year-old male who is brought in by EMS today concerned about his blood pressure. He states that he has a history of hypertension. He was admitted here a few weeks ago for atrial fibrillation with rapid ventricular response and found to have hypokalemia as well. His medications were changed around at that time. He states he feels like he has had panic attacks since that occurred. He states that his blood pressure is normal in the morning and climbs throughout the day until he feels like he is having a panic attack at night. He states he also had slight left-sided chest pain earlier today. [place] like a warm sensation. Nothing made it better or worse. He states occasionally his hands feel cold. Review of Systems Constitutional: denies: Fever, Chills Throat: denies: Sore throat Cardiac: denies: Chest pain / pressure, Palpitations, Calf pain Respiratory: denies: Dyspnea, Cough GI: denies: Nausea, Vomiting, Diarrhea Skin: denies: Rash Musculoskeletal: denies: Neck pain, Back pain Neurologic: denies: Headache PD PAST MEDICAL HISTORY - Past Medical History Cardiovascular: Hypertension, High cholesterol Respiratory: None Neuro: None Endocrine/Autoimmune: None GI: None : None Psych: None Musculoskeletal: None Derm: None - Past Surgical History Past Surgical History: Yes - Present Medications Home Medications: Ambulatory Orders Medication Instructions Recorded Confirmed Losartan [Cozaar] 100 mg PO DAILY 08/02/21 08/02/21 Aspirin EC [Ecotrin] 81 mg PO DAILY #30 tablet 08/03/21 Potassium Chloride 10 meq PO DAILY #30 tab 08/03/21 diltiaZEM CD [Cardizem Cd] 120 mg PO DAILY #30 cap 08/03/21 Spironolactone [Aldactone] 25 mg PO 08/22/21 - Allergies Allergies/Adverse Reactions: Allergies Allergy/AdvReac Type Severity Reaction Status Date / Time nitrous oxide Allergy Unknown Verified 08/22/21 20:10 pollen extracts AdvReac Mild Rash Verified 08/22/21 20:20 pollen AdvReac Mild Rash Uncoded 08/22/21 20:20 - Social History Does the pt smoke?: No Smoking Status: Never smoker Does the pt drink ETOH?: Yes Does the pt have substance abuse?: No - Immunizations Immunizations are current?: Yes PD ED PE NORMAL - Vitals Vital signs reviewed: Yes - General General: Alert and oriented X 3, No acute distress - HEENT HEENT: PERRL, Moist mucous membranes - Neck Neck: Supple, no meningeal sign - Cardiac Cardiac: RRR - Respiratory Respiratory: No respiratory distress, Clear bilaterally - Abdomen Abdomen: Soft, Non tender, Non distended - Back Back: No spinal TTP - Derm Derm: Warm and dry - Extremities Extremities: No edema, No calf tenderness / cord - Neuro Neuro: Alert and oriented X 3 - Psych Psych: Normal mood, Normal affect Results - Vitals Vitals: Vital Signs - 24 hr 08/22/21 08/22/21 08/22/21 20:04 20:15 21:33 Temperature 36.6 C 36.9 C Heart Rate 61 55 L Respiratory 16 17 Rate Blood Pressure 197/124 H 155/98 H Blood Pressure 191/124 H [Right] O2 Saturation 97 97 Oxygen O2 Source Room air - EKG (time done) 1957 Rate: Rate (enter#) (63) Rhythm: NSR [place]: Normal Intervals: Normal [place] QRS: Normal Ischemia: Non specific changes - Labs Labs: Laboratory Tests 08/22/21 08/22/21 08/22/21 20:36 20:36 20:36 WBC 5.5 RBC 5.22 Hgb 15.4 Hct 44.4 MCV 85.1 MCH 29.5 MCHC 34.7 RDW 12.4 Plt Count 226 MPV 10.6 Neut # (Auto) 3.6 Lymph # (Auto) 1.4 L [place] # (Auto) 0.4 Eos # (Auto) 0.1 Baso # (Auto) 0.0 Absolute Nucleated RBC 0.00 Nucleated RBC % 0.0 Sodium 139 Potassium 3.8 Chloride 104 Carbon Dioxide 25 Anion Gap 10.0 BUN 12 Creatinine 1.0 Estimated GFR (MDRD) 79 L Glucose 108 H Calcium 9.4 Total Bilirubin 1.0 AST 15 ALT 19 Alkaline Phosphatase 45 Troponin I High Sens 3.7 Total Protein 7.4 Albumin 4.4 Globulin 3.0 Albumin/Globulin Ratio 1.5 Lipase 38 - Rads (name of study) cxr Radiology: Final report received, EMP read contemporaneously, See rad report PD MEDICAL DECISION MAKING - ED course Complexity details: reviewed results, re-evaluated patient, considered differential (No ST elevation VT, no aortic dissection, no PE, no tension pneumothorax, no aortic aneurysm), d/w patient ED course: No significant findings on laboratory testing, EKG, chest x-ray. Asymptomatic in the emergency department. Negative troponin. Recommend that he check his blood pressure only 1-2 times per day. This appears to be causing him anxiety. Patient will follow up with his doctor for further evaluation and care. Blood pressure decreased on its own in the emergency department. No A. fib on the monitor. Patient counseled regarding signs and symptoms for which I believe and urgent re-evaluation would be necessary. Patient with good understanding of and agreement to plan and is comfortable going home at this time This document was made in part using voice recognition software. While efforts are made to proofread this document, sound alike and grammatical errors may occur. Departure - Departure Disposition: 01 Home, Self Care Clinical Impression: HTN (hypertension) Qualifiers: Hypertension type: unspecified Qualified Code(s): I10 - Essential (primary) hypertension Chest pain Qualifiers: Chest pain type: unspecified Qualified Code(s): R07.9 - Chest pain, unspecified Condition: Good Instructions: ED Chest Pain Atypical Unkn Cause, ED HTN Established Follow-Up: your,doctor in 1 week [Other] Comments: You did not have any significant lab abnormalities tonight. Your troponin is normal. Your chest x-ray does not show any acute abnormalities. Your EKG does not show any acute abnormalities either. Please follow-up with your doctor for further care. Return if you worsen. Continue your current medications. Only check your blood pressure 1-2 times per day and keep a log so your doctor can adjust your medications. Discharge Date/Time: 08/22/21 21:33
[2021-08-22 20:44] LABS: BASOPHILS % (AUTO) 0.7 %; EOSINOPHILS # (AUTO) 0.1 10^3/uL (0.0-0.7); EOSINOPHILS % (AUTO) 2.2 %; HCT - HEMATOCRIT 44.4 % (42.0-52.0); HGB - HEMOGLOBIN 15.4 g/dL (14.0-18.0); LYMPHOCYTES # (AUTO) 1.4 10^3/uL (1.5-3.5); LYMPHOCYTES % (AUTO) 25.7 %; MEAN CORPUSCULAR HEMOGLOBIN 29.5 pg (27.0-31.0); MEAN CORPUSCULAR HGB CONC 34.7 g/dL (32.0-36.0); MEAN CORPUSCULAR VOLUME 85.1 fL (80.0-94.0); MEAN PLATELET VOLUME 10.6 fL (7.4-11.4); MONOCYTES # (AUTO) 0.4 10^3/uL (0.0-1.0); MONOCYTES % (AUTO) 6.5 %; NEUTROPHILS # (AUTO) 3.6 10^3/uL (1.5-6.6); NEUTROPHILS % (AUTO) 64.7 %; PLT - PLATELET COUNT 226 10^3/uL (130-450); RED BLOOD COUNT 5.22 10^6/uL (4.70-6.10); RED CELL DISTRIBUTION WIDTH 12.4 % (12.0-15.0); WHITE BLOOD COUNT 5.5 x10^3/uL (4.8-10.8)
[2021-08-22 21:02] LABS: ALBUMIN 4.4 g/dL (3.2-5.5); ALBUMIN/GLOBULIN RATIO 1.5 (1.0-2.2); CALCIUM 9.4 mg/dL (8.5-10.3); POTASSIUM 3.8 mmol/L (3.5-5.0); TOTAL PROTEIN 7.4 g/dL (6.7-8.2)
--- NOTE | 2021-08-22 21:06 | XRAY Report ---
PROCEDURE: Chest 1 View X-Ray INDICATIONS: Chest Pain TECHNIQUE: One view of the chest was acquired. COMPARISON: None FINDINGS: Surgical changes and devices: None. Lungs and pleura: No pleural effusions or pneumothorax. Lungs are clear. Mediastinum: Mediastinal contours appear normal. Heart size is normal. Bones and chest wall: No suspicious bony lesions. Overlying soft tissues appear unremarkable. IMPRESSION: Chest without acute cardiopulmonary abnormalities or focal airspace disease. Reviewed by: Chris Lainez MD on 08/22/2021 9:05 PM [facility] Approved by: Chris Lainez MD on 08/22/2021 9:05 PM [facility] Station ID: [id number]
[2021-08-22 21:37] VITALS: BP 155/98
== END 2021-08-22 21:33 | disposition home or self-care (01) ==
LOC: EDUNIT# → ED 19:56
DX: I10 Essential (primary) hypertension (principal)
CPT/HCPCS: 36415; 80053; 83690; 84484; 85025; 93005; 99284

== ENCOUNTER 2023-09-12 07:00 | Outpatient (CLI) | payer OTHER ==
--- NOTE | 2023-09-12 13:42 | XRAY Report ---
PROCEDURE: Hand 3+V LT INDICATIONS: SPRAIN OF LEFT THUMB TECHNIQUE: 3 views of the hand(s) acquired. COMPARISON: None. FINDINGS: Bones: No fractures or dislocations. No suspicious bony lesions. Soft tissues: No suspicious soft tissue calcifications or masses. IMPRESSION: No acute fracture. No osseous lesion. If symptoms and/or clinical suspicion for pathology continue, f urther assessment with repeat plain films, or advanced imaging (e.g., CT, MRI, or bone scan) is recom mended for further assessment. Reviewed by: Mundo Bear MD on 09/12/2023 1:41 PM PST Approved by: Mundo Bear MD on 09/12/2023 1:41 PM PST Station ID: [id number]
== END 2023-09-12 23:59 | disposition home or self-care (01) ==
LOC: DI.S 07:00
PROVIDERS: ATTEND Physician Assistant Medical
DX: S63.602A Unspecified sprain of left thumb, initial encounter (principal)

== ENCOUNTER 2023-09-22 08:52 | Outpatient (CLI) | payer OTHER ==
--- NOTE | 2023-09-22 12:54 | CT Report ---
PROCEDURE: Upper Extremity LT WO INDICATIONS: OA LEFT THUMB TECHNIQUE: Noncontrast 2 mm axial sections were acquired through the elbow joint, with coronal and sagittal refo rmats. For radiation dose reduction, the following was used: automated exposure control, adjustment of mA and/or kV according to patient size. COMPARISON: Left hand radiograph dated 09/12/2023. FINDINGS: Image quality: Excellent. Bones: Alignment of left hand and wrist is anatomic. No acute fracture or dislocation. Moderate firs t CMC joint osteoarthritic changes are seen with joint space narrowing, subchondral sclerosis and mar ginal osteophyte formation. Dorsal and lateral subluxation at first CMC joint is also seen. Mild to m oderate first MTP joint and interphalangeal joint osteoarthritic changes also noted with joint space narrowing, subchondral sclerosis and marginal osteophyte formation. Subcortical cystic areas are note d involving first metacarpal base.No definite bony erosive changes. No suspicious bony lesions. Soft tissues: There is no discrete soft tissue mass or drainable fluid collection. No abnormal soft tissue calcifications are seen. No full-thickness extensor or flexor tendon rupture. IMPRESSION: 1. Moderate first CMC joint osteoarthritis and mild to moderate first MTP joint and interphalangeal j oint osteoarthritis. No acute fracture or dislocation. No suspicious bony lesions. 2. No abnormal soft tissue calcifications. No discrete soft tissue mass or drainable fluid collection . No full-thickness tendon rupture. Reviewed by: Derek Freire MD on 09/22/2023 12:53 PM PST Approved by: Derek Freire MD on 09/22/2023 12:53 PM PST Station ID: [id number]
== END 2023-09-22 08:53 | disposition home or self-care (01) ==
LOC: DI 08:52
PROVIDERS: ATTEND Registered Nurse
DX: M18.12 Unilateral primary osteoarthritis of first carpometacarpal joint, left hand (principal); M19.042 Primary osteoarthritis, left hand